=== PATIENT | male | born 1985 | race Caucasian/White ===

== ENCOUNTER → 2023-12-04 15:12 | Outpatient (REF) | payer BC, SELFPAY | LOC: DHCBC MAIN 15:12 | PROVIDERS: ATTENDING PHYSICIAN Internal Medicine; FAMILY PHYSICIAN Student in an Organized Health Care Education/Training Program | DX: I34.0 Nonrheumatic mitral (valve) insufficiency (principal) | CPT/HCPCS: 93306 ==